=== PATIENT | male | born 1970 | race Caucasian/White ===

== ENCOUNTER 2024-05-17 09:17 | Outpatient (AMB) | payer OTHER, SELFPAY ==
--- NOTE | 2024-05-17 09:32 | A.OFFPC_ITS ---
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 Required: No Accompanied by: Self / Same As Patient Allergies No Known Allergies Allergy (Verified 05/17/24 09:43) Medication List - Last Reconciled 05/17/24 by Ephraim Wilson PA-C No Known Home Meds Tobacco use date assessed: 05/17/24 Dental Screening Dental Screen Date: 05/17/24 Did you have a dental visit in the last 12 months?: Yes Did you have a dental problem in the last 6 months where you did not have access to dental care?: No Was dental information given to patient?: Patient has dentist HPI establish care HPI Details The patient is a 53-year-old male presenting for a wellness visit and inquiries about health screenings. He reports a longstanding history of restless legs syndrome, which primarily affects his by disrupting her sleep and occasionally causes him to wake during the night. He has attempted maop-vav-pmaufgj remedies such as potassium supplementation, but he seeks further evaluation and potential treatment options. He is concerned about health maintenance given his age and mentions his 's encouragement to pursue screenings. The patient does not take any medications and reports no chronic illnesses. He previously saw Dr. Santos but has not had a medical review for some time. He has never received the tetanus vaccine nor undergone a colonoscopy or other colorectal cancer screenings. He is aware that the recommended starting age for colorectal screening has been reduced to 45 years. His family history reveals a father with heart issues characterized by hypertension and atrial fibrillation. His father also had a minor stroke affecting vision in one eye. The patient's mother is in good health, and his siblings are also well. Vaccine: Need For Tdap though declines at this time, declines flu vaccine Colorectal cancer screening: Willing to do Cologuard COUNTS INCLUDE [facility] BEDS AT THE [facility] Surgical History History of right knee surgery History of shoulder surgery Family History (Updated 05/17/24 @ 09:48 by Ephraim Wilson PA-C) Mother No problems noted. Father CVA (cerebral vascular accident) HTN (hypertension) Social History Housing: House Alcohol intake: current Alcohol intake frequency: a few times a week Alcohol type: wine Patient Tobacco Use Status: Never used Tobacco e-Cigarette/Vaping Use: Never Used Second Hand Smoke Exposure: No service: No Current occupational status: employed Current occupational exposures/hazards: No Cognitive needs: No Hearing needs: No Vision needs: No Questionnaire PHQ-9 Over the last 2 weeks, how often have you been bothered by any of the following problems? 1. Little interest or pleasure in doing things: not at all 2. Feeling down, depressed, or hopeless: not at all 3. Trouble falling or staying asleep, or sleeping too much: not at all 4. Feeling tired or having little energy: not at all 5. Poor appetite or overeating: not at all 6. Feeling bad about yourself - or that you are a failure or have let yourself or your family down: not at all 7. Trouble concentrating on things, such as reading the newspaper or watching television: not at all 8. Moving or speaking so slowly that other people could have noticed. Or the opposite - being so fidgety or restless that you have been moving around a lot more than usual: not at all 9. Thoughts that you would be better off or of hurting yourself in some way: not at all Total score: 0 Depression Screening Interpretation: Negative Depression Screening Done: Yes 91831 - PHQ-9 Billing: Yes Source: Developed by Drs. Stuart Dutta, Elysia Patel, Imer Barajas and colleagues, with an educational janett from [employer]. Thrive Questionnaire Date Thrive assessed: 05/11/24 I am a: Patient What is your living situation today?: I have a steady place to live Within the past 12 months, did the food you bought not last and you didn't have the money to get more?: Never true Within the past 12 months, did you worry whether your food would run out before you got money to buy more?: Never true Do you have trouble paying for medicines?: No Do you have trouble getting transportation to medical appointments?: No Do you have trouble paying your heating and electricity bill?: No Do you have trouble taking care of your child, family member or friend?: No Do you have trouble with day-to-day activities such as bathing, preparing meals, shopping, managing finances, etc.?: No Are you currently unemployed and looking for a job?: No Are you interested in more education?: No Please select the resources that you would like help with: None Currently or been in a relationship where the following occur: No concerns reported THRIVE Score: 0 AUDIT C Alcohol Use Questionnaire (AUDIT-C) 1. How often do you have a drink containing alcohol?: 2-4 times a month 2. How many drinks containing alcohol do you have on a typical day when you are drinking?: 3 or 4 3. How often do you have six or more drinks on one occasion?: Never Total Score: 3 DOUGLAS-7 AMB Questionnaire DOUGLAS-7 Date DOUGLAS - 7 assessed: 05/17/24 Feeling nervous, anxious, or on edge: 0 = Not at all Not being able to stop or control worryin = Not at all Worrying too much about different things: 0 = Not at all Trouble relaxin = Not at all Being so restless that it is hard to sit still: 0 = Not at all Becoming easily annoyed or irritable: 0 = Not at all Feeling afraid as if something awful might happen: 0 = Not at all Total DOUGLAS-7 score (0-4 normal; 5-9 mild; 10-14 moderate; 15-21 severe): 0 Source: Developed by Drs. Stuart Dutta, Elysia Patel, Imer Barajas and colleagues, with an educational janett from [employer]. DOUGLAS-7 Assessment Billing DOUGLAS-7 Assessment Tool: DOUGLAS-7 Assessment 45609 Review of Systems Const Denies headache(s) Eyes Denies loss of vision ENT Denies vertigo, Denies dizziness, Denies headache(s) and Denies sore throat Card Denies chest pain, Denies leg edema and Denies lightheadedness Resp Denies cough, Denies hemoptysis and Denies wheezing GI Denies abdominal pain, Denies melena, Denies constipation, Denies diarrhea and Denies vomiting Denies dysuria, Denies urinary frequency and Denies urinary urgency Musc Denies arthralgias, Denies joint swelling, Denies numbness and Denies tingling Neuro Denies Abnormal speech present, Denies behavioral changes, Denies vertigo, Denies dizziness, Denies headache(s), Denies loss of vision, Denies memory loss, Denies numbness and Denies tingling Psych Denies anxiety, Denies behavioral changes, Denies depression, Denies memory loss and Denies panic attacks Viraj/Lymph Denies easy bleeding and Denies easy bruising Aller/Immun Denies wheezing Physical exam (Primary Care) Vital Signs: Last Vital Signs Pulse 89 05/17/24 09:35 BP 146/84 H 05/17/24 09:35 Pulse Ox 97 05/17/24 09:35 Oxygen Delivery Method Room Air 05/17/24 09:35 BMI result Body Mass Index 28.5 Tobacco/Smoking Status: Tobacco use Status Patient Tobacco Use Status Never used Tobacco 05/17/24 09:38 e-Cigarette/Vaping Use Never Used 05/17/24 09:38 PHQ-9: PHQ-9 Score PHQ-9: Total score 0 05/17/24 09:34 Depression Screening Interpretation: Negative Thrive Assessment: Date of Thrive Assessment Date Thrive assessed 05/11/24 05/17/24 09:34 Currently or been in a relationship where the following occur: No concerns reported Const General: healthy appearing, no acute distress, alert and awake Nutritional Appearance: well nourished Orientation/consciousness: oriented to person, oriented to place and oriented to time HENMT Ears: TM's normal bilaterally General nose exam: Normal nasal mucous membranes and turbinates present Eyes Conjunctivae: conjunctivae normal Sclerae: sclerae normal Pupils: Equal, round and reactive pupils present Neck Neck: Yes no lymphadenopathy and Yes no JVD Thyroid: Thyroid normal Carotids: no bruits Resp Effort & Inspection: normal respiratory effort and not tachypneic Auscultation: no crackles, no rales, no rhonchi and no wheezes Cardio Rate: regular rate Rhythm: regular rhythm Heart sounds: no murmurs and normal S1 and S2 GI Palpation (GI): Soft to palpation, nontender, no hepatomegaly and no splenomegaly Auscultation: normal bowel sounds Skin General skin exam: no rashes or lesions noted and dry skin Neuro General: oriented to person, oriented to place and oriented to time Cranial nerves: Yes Equal, round and reactive pupils present Speech: No Abnormal speech present Gait exam (Neuro): Normal gait present Motor exam (neuro): no tremor noted Extrem Right upper extremity: full ROM Left upper extremity: full ROM Right lower extremity: full ROM; no edema Left lower extremity: full ROM; no edema Psych Mental Status: mental status grossly normal Speech and movement: Normal speech and movement present Affect: normal affect Attitude: cooperative Thought process: Normal thought process present Coding Level of Care Code New Pt Level 4 (02424) Diagnoses RLS (restless legs syndrome) G2.81 Screening for diabetes mellitus (DM) Z13.1 Encounter for screening prostate specific antigen (PSA) measurement Z12.5 Elevated blood pressure reading in office with white coat syndrome, without diagnosis of hypertension R03.0 Additional Codes PHQ-9 - 36929 - PHQ-9 Billing: Yes ([id number]) DOUGLAS-7 Assessment Billing - DOUGLAS-7 Assessment Tool: DOUGLAS-7 Assessment 41865 ([id number]) Assessment & Plan Assessment & Plan (1) RLS (restless legs syndrome): Code(s): G2.81 - Restless legs syndrome Category: Medical Plan: Patient reports he has been having restless legs at night quite some time which disrupts his sleep in his sleep. He has tried supplemental potassium though has not been effective. He is willing to try ropinirole 0.1 mg. (2) Screening for diabetes mellitus (DM): Code(s): Z13.1 - Encounter for screening for diabetes mellitus Category: Medical Plan: As per HPI (3) Encounter for screening prostate specific antigen (PSA) measurement: Code(s): Z12.5 - Encounter for screening for malignant neoplasm of prostate Category: Medical Plan: As per HPI (4) Elevated blood pressure reading in office with white coat syndrome, without diagnosis of hypertension: Code(s): R03.0 - Elevated blood-pressure reading, without diagnosis of hypertension Category: Medical Plan: Noted elevated blood pressure reading today in office. 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 He will monitor his blood pressure at home Orders: Orders Magnesium Today G2.81 - Restless legs syndrome Comprehensive [place]. Panel Fast Today Z13.1 - Encounter for screening for diabetes mellitus Ferritin Today G2.81 - Restless legs syndrome Prostate Specific Antigen Scr Today Z12.5 - Encounter for screening for malignant neoplasm of prostate Complete Blood Count no Diff Today Z13.1 - Encounter for screening for diabetes mellitus Referrals Gastroenterology Referral Z12.11 - Encounter for screening for malignant neoplasm of colon, Z12.12 - Encounter for screening for malignant neoplasm of rectum Medications: New ropinirole administer 1-3 hours before bedtime 0.5 mg PO BEDTIME 7 days 7 tabs 0RF G25.81 - Restless legs syndrome
[2024-05-17 09:35] VITALS: BP 146/84; PULSE 89; O2SAT 97; BMI 28.5
--- OUTSIDE RECORDS SUMMARY | 2024-05-17 09:37 | XMS_ITS | Clinical Summary ---
Author Organization [facility] [employer] [facility] Address [address] [place] [address] Care Team Providers Care Pharmaceutical Plant Operator Name Role Phone No, Pcp RECRUITMENT MANAGER Primary Care Provider Unavailabl e Allergies No known active allergies Medications No known medications Social History Tobacco Use Types Packs/Day Years Used Date Smoking Tobacco: Never Assessed Sex and Gender Information Value Date Recorded Sex Assigned at Not on file Legal Sex Male 1:11 PM EST Gender Identity Not on file Sexual Orientation Not on file Last Filed Vital Signs Vital Sign Reading Time Taken Comments Blood Pressure 136/80 04/27/2020 2:12 PM EST Pulse 80 04/27/2020 2:12 PM EST Temperature 36.7 ??C (98.1 ??F) 04/27/2020 2:12 PM ES T Respiratory Rate 18 04/27/2020 2:12 PM EST Oxygen Saturation 98% 04/27/2020 2:12 PM EST Inhaled Oxygen Concentration - - Weight - - Height - - Body Mass Index - - Plan of Treatment Health Maintenance Due Date Last Done Comments Colorectal Cancer: COLONOSCO PY Screening every 10 yrs (or Modifier) 1971 Depression: Screening Annual ly using PHQ-2/9 in Adults 18 yrs or above (or HM Modifier)([facility]) 11/21/1989 Hepatitis C Virus Infection in Adolescents and Adults: Screening (or Modifier) ([facility]) 11/21/1989 [facility] Screening Reminder: Maria E braun for all adults ([facility]) 11/21/1989 Tobacco Smoking Cessation: i n Adults excluding Women: Behavioral and Pharmacotherapy Interventions ([facility]) 11/21/1989 DTaP/Tdap/Td Vaccines ([facility]) (1 - Tdap) 11/21/1990 Lipid Screening: Every 5 yrs for Men aged 35+ (or HM Modifier) ([facility]) 2007 Colorectal Cancer Screening 45 -75 Yrs (or HM Modifier) 11/21/2016 Colorectal Cancer: FLEXIBLE SIGMOIDOSCOPY Screening every 5 yrs 11/21/2016 Colorectal Cancer: Fecal Immunochemical Test (FIT) Annually [facility] 11/21/2016 Colorectal Cancer: High-sens itivity gFOBT Screening Annually [facility] 11/21/2016 Colorectal Cancer: Stool Col oguard Screening every 3 yrs 11/21/2016 Colorectal Cancer:CT Colonog isaias Screening every 5 yrs 11/21/2016 Zoster/Shingles Vaccine Seri es Screening: Adults aged 18+ yrs (or HM Modifiers)([facility]) (1 of 2) 11/21/2021 Flu Vaccination: Yearly for ages 18mos through 64 years (or Modifier)([facility]) 11/13/2023 COVID-19 Vaccine Screening: Initial Series and Booster Status ([facility]) (2023- season) 2023 Pneumococcal Vaccination Scr eening: Pts 0-19 & 19-64 yrs of age ([facility]) Aged Out No longer eligible based on patient's age to complete this topic Medical Devices Not on file Insurance [facility] Care Teams Pharmaceutical Plant Operator Relationship Specialty Start Date End Date No, Pcp, RECRUITMENT MANAGER N/A Do not use PCP - General Family Medicine 04/27/20
== END 2024-05-17 10:05 | disposition home or self-care (01) ==
PROVIDERS: PCP Physician Assistant; Visit Provider Physician Assistant
DX: G25.81 Restless legs syndrome (principal); Z13.1 Encounter for screening for diabetes mellitus; Z12.5 Encounter for screening for malignant neoplasm of prostate; R03.0 Elevated blood-pressure reading, without diagnosis of hypertension

== ENCOUNTER → 2024-05-17 09:17 | Outpatient (BNVA) | payer OTHER, SELFPAY | PROVIDERS: PCP Physician Assistant; Visit Provider Physician Assistant | DX: G25.81 Restless legs syndrome (principal); R03.0 Elevated blood-pressure reading, without diagnosis of hypertension | CPT/HCPCS: 96127 ==

== ENCOUNTER 2024-11-25 08:38 | Outpatient (AMB) | payer OTHER, SELFPAY ==
--- NOTE | 2024-11-25 08:47 | A.OFFVIS_ITS ---
Vital Signs 11/25/24 08:53 Height 5 ft 9 in Weight 180 lb BMI 26.6 BP 134/82 Blood Pressure Location Rt brachial Position Sitting Pulse 76 Pulse Source Pulse Oximeter Pulse Oximetry (%) 99 Oxygen Delivery Method Room Air Intake Visit Reasons: pre colonoscopy Intake Note: Patient new consult for Colonoscopy Screening. Patient cc: Pt denies any GI sx or concerns at this time. Pt reports FMHx (MGM). 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 Referred by PCP for pre colonoscopy screening This will be Teofilo first colonoscopy. He reports having bowel movements once daily without issues; denies constipation, diarrhea, or blood in stool. He has experienced intentional weight loss of approximately 13 pounds since May 2024 due to healthier eating and increased exercise. He denies experiencing heartburn or other gastrointestinal complaints. Recent knee surgery five weeks ago was noted. Teofilo takes ropinirole nightly for restless legs syndrome, which is stable, and naproxen on an as-needed basis. Patient denies: fever/chills, n/v, appetite changes, pyrosis, regurgitation,dysphasia, unintentional wt loss, ab pain or melena/hematochezia. Social hx: -Weekends, occasionally a couple of glasses of wine or beer. -denies recreational drug use -Quit over 30 years ago; history of occasional smoking during college. - family hx as below -denies personal hx of CA -denies significant cardiopulmonary history -tolerated anesthesia in the past without difficulty. [facility] Medical History (Updated 11/25/24 @ 09:03 by Ju Garcia CNP) Colon cancer screening Surgical History History of right knee surgery History of shoulder surgery Family History (Updated 11/25/24 @ 08:52 by BRICE Shelton) Mother No problems noted. Father CVA (cerebral vascular accident) HTN (hypertension) Maternal Grandmother Colon cancer Social History (Reviewed 11/25/24 @ 08:48 by ALFRED Shelton Housing: House Alcohol intake: current Alcohol intake frequency: a few times a week Alcohol type: wine Patient Tobacco Use Status: Never used Tobacco e-Cigarette/Vaping Use: Never Used Second Hand Smoke Exposure: No service: No Current occupational status: employed Current occupational exposures/hazards: No Cognitive needs: No Hearing needs: No Vision needs: No Review of Systems Const Reports as per HPI ENT Reports as per HPI Card Reports as per HPI Resp Reports as per HPI GI Reports as per HPI Reports as per HPI Physical Exam Vital Signs: Last Vital Signs Pulse 76 11/25/24 08:53 BP 134/82 11/25/24 08:53 Pulse Ox 99 11/25/24 08:53 Oxygen Delivery Method Room Air 11/25/24 08:53 BMI result Body Mass Index 26.6 Const General: healthy appearing, no acute distress and well developed Nutritional Appearance: average body habitus Orientation/consciousness: patient oriented x3 HEENT Head: Yes normal to inspection, Yes normocephalic and Yes atraumatic Face and sinus: Yes normal facial exam Eyes General: appearance normal, both eyes and all related structures Neck Neck: Yes normal visual inspection Resp Effort & Inspection: normal respiratory effort, able to speak in complete sentences, no tracheal deviation and symmetric chest movement Cardio Jugular venous distension: no JVD Neuro General: patient oriented x3 Gait exam (Neuro): Normal gait present Psych Appearance: grossly normal Mental Status: mental status grossly normal Speech and movement: Normal speech and movement present Affect: normal affect Attitude: cooperative Thought process: Normal thought process present Thought content: Normal thought content present Insight: Good insight present (Psych) Judgement: Good judgement present (Psych) Assessment & Plan Assessment & Plan (1) Colon cancer screening: Code(s): Z12.11 - Encounter for screening for malignant neoplasm of colon Category: Medical Plan: Index screening colonoscopy, without alarm features. Second degree relative with colon cancer history (maternal grandmother). Medications: -prescriptions for laxative tablets and MiraLax sent to pharmacy; instructions for Gatorade purchase and clear liquid diet given. Patient educated on scheduling process, procedure preparation, including avoiding certain foods and ensuring clear liquid intake Advised on necessity for ride post-procedure due to sedation. Plan Follow-up after colonoscopy as warranted or sooner if needed Time: I spent a total of 15 minutes on the date of encounter which includes: Preparing to see the patient (reviewed previous documentation, test results and medical history) Performing a medically appropriate exam and/or evaluation Ordering medications, tests, and procedures Documenting clinical information in the health record Medications: New bisacodyl (Dulcolax (bisacodyl)) Take four tablets pre colonoscopy instructions 20 mg (4 x 5 mg) PO ONCE 4 tabs 0RF 1 day polyethylene glycol 3350 (Miralax) per colonoscopy prep instructions 238 grams PO ONCE 238 grams 0RF Coding Level of Care Code New Pt New Pt Level 2 (09347) Patient Type New Diagnoses Colon cancer screening Z12.11
[2024-11-25 08:53] VITALS: BP 134/82; PULSE 76; O2SAT 99; BMI 26.6
--- OUTSIDE RECORDS SUMMARY | 2024-11-25 08:59 | XMS_ITS | Clinical Summary ---
Author Organization [facility] Address [address] [place] [address] Care Team Providers Care Receiver Setter Name Role Phone No, Pcp LABOR TRAINING MANAGER Primary Care Provider Unavailabl e Allergies [...] 80 04/27/2020 2:12 PM EST Temperature 36.7 C (98.1 F) 04/27/2020 2:12 PM EST Respiratory Rate 18 04/27/2020 2:12 PM EST [...] Adults 18 yrs or above (or HM Modifier)([facility]) 11/21/1989 Hepatitis C Virus Infection in Adolescents and Adults: Screening (or Modifier) ([facility]) 11/21/1989 [facility] Screening Reminder: Maria E braun for all adults ([facility]) 11/21/1989 Tobacco Smoking Cessation: i n Adults excluding Women: Behavioral and Pharmacotherapy Interventions ([facility]) 11/21/1989 DTaP/Tdap/Td Vaccines ([facility]) (1 - Tdap) 11/21/1990 Colorectal Cancer Screening 45 -75 Yrs (or HM Modifier ) 11/21/2016 Colorectal Cancer: FLEXIBLE SIGMOIDOSCOPY Screening every 5 yrs 11/21/2016 Colorectal Cancer: Fecal Imm unochemical Test (FIT) Annually [facility] 11/21/2016 Colorectal Cancer: High-sens itivity gFOBT Screening Annually [facility] 11/21/2016 Colorectal Cancer: Stool Col oguard Screening every 3 yrs 11/21/2016 Colorectal Cancer:CT Colonography Screening every 5 yr s 11/21/2016 Pneumococcal Vaccination Scr eening: Patients 50+ yrs of age ([facility]) (1 of 1 - PCV) 11/21/2021 Zoster/Shingles Vaccine Seri es Screening: Adults aged 18+ yrs (or HM Modifiers)([facility]) (1 of 2) 11/21/2021 COVID-19 Vaccine Screening: Initial Series and Booster Status ([facility]) (2023- season) 2023 Flu Vaccination: Yearly for ages 18mos through 64 years (or Modifier)([facility]) 11/12/2024 Medical Devices Not on file Insurance [facility] Care Teams Receiver Setter Relationship Specialty Start Date End Date No, Pcp, LABOR TRAINING MANAGER N/A Do not use PCP - General Family Medicine 04/27/20
== END 2024-11-25 09:11 | disposition home or self-care (01) ==
LOC: HO.HGI 08:46
PROVIDERS: PCP Physician Assistant; Visit Provider Nurse Practitioner Family
DX: Z01.818 Encounter for other preprocedural examination (principal); Z12.11 Encounter for screening for malignant neoplasm of colon
CPT/HCPCS: 99202

== ENCOUNTER 2025-03-14 07:52 | Outpatient (REF) | payer OTHER, SELFPAY ==
--- OUTSIDE RECORDS SUMMARY | 2025-03-14 07:54 | XMS_ITS | Clinical Summary ---
Author Organization [employer] [facility] lin Address [address] [place] [address] Care Team Providers Care Financial Risk Manager Name Role Phone No, Pcp SURVEY RESEARCH ANALYST Primary Care Provider Unavailabl e Allergies No [...] Mass Index - - Plan of Treatment Not on file Medical Devices Not on file Insurance [facility] Care Teams Financial Risk Manager Relationship Specialty Start Date End Date No, Pcp, SURVEY RESEARCH ANALYST N/A Do not use PCP - General Family Medicine 04/27/20
[2025-03-14 08:42] LABS: Hematocrit 42.9 % (42.0-52.0); Hemoglobin 14.2 g/dl (14.0-18.0); Mean Corpuscular HGB Conc 33.1 g/dl (31.0-36.0); Mean Corpuscular Hemoglobin 30.9 pg (27.0-33.0); Mean Corpuscular Volume 93.5 fL (80.0-98.0); NRBC Abs Auto 0.000 X10*3/uL (0.0-0.012); NRBC Pct Auto 0.0 /100WBC (0.0-0.2); Platelet Count 306 X10*3/uL (160-400); Red Blood Count 4.59 X10*6/uL (4.60-5.80); White Blood Count 4.8 X10*3/uL (4.8-10.8)
[2025-03-14 09:24] LABS: Alanine Aminotransferase 40 U/L (0-40); Albumin Level 4.9 g/dL (3.5-5.0); Alkaline Phosphatase 42 U/L (39-117); Anion Gap 13 (12-20); Aspartate Amino Transferase 27 U/L (5-37); Blood Urea Nitrogen 17 mg/dL (9-16); Calcium 9.4 mg/dL (8.4-10.2); Carbon Dioxide 26 mmol/L (22-29); Chloride 108 mmol/L (96-108); Estimated Glomerular Filt Rate > 60; Magnesium 2.1 mg/dL (1.6-2.6); Potassium 4.3 mmol/L (3.3-5.1); Sodium 143 mmol/L (135-145); Total Protein 7.3 g/dL (6.5-8.0)
[2025-03-14 09:33] LABS: Ferritin 293 ng/mL (20-250)
== END 2025-03-14 07:53 | disposition home or self-care (01) ==
LOC: HO.LAB 07:52
PROVIDERS: PCP Physician Assistant; Visit Provider Physician Assistant
DX: Z13.1 Encounter for screening for diabetes mellitus (principal); Z12.5 Encounter for screening for malignant neoplasm of prostate; G25.81 Restless legs syndrome
CPT/HCPCS: 36415; 80053; 82728; 83735; 84153; 85027

== ENCOUNTER 2025-03-15 10:32 | Outpatient (AMB) | payer OTHER, SELFPAY ==
--- NOTE | 2025-03-15 10:48 | A.OFFPC_ITS ---
Vital Signs 03/15/25 10:50 Height 5 ft 9 in Weight 187 lb 6 oz BMI 27.7 BP 120/66 Blood Pressure Location Lt brachial Position Sitting Pulse 98 Pulse Source Pulse Oximeter Temp 97.3 F Temp Source Temporal Artery Scan Pulse Oximetry (%) 96 Oxygen Delivery Method Room Air Intake Visit Reasons: annual exam Intake Note: Patient is here today for a physical. 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 Patient has a past medical history significant for restless legs syndrome. The patient reports a significant issue with restless legs, which disrupts sleep. The patient has been taking ropinirole, which was initially effective, but the patient feels a tolerance may have developed. The patient has experimented with taking 1.5 pills, which improves sleep but results in grogginess the following day, and also runs out of the medication before the prescription is due for a refill. The patient has tried magnesium supplements without noticeable improvement. The sleep disruption affects the patient's mood and energy levels, causing tiredness during the day. There is a strong family history of restless legs syndrome, with both parents and the patient's 27-year-old daughter also affected. Recent lab work revealed a slightly elevated ferritin level of 293 and a fasting blood sugar of 112, for which the patient confirms having fasted. The patient's father is currently undergoing testing for digestive issues. Colonoscopy: Has gotten colonoscopy evaluation in his awaiting the procedure. VAccine: Declines flu vaccine , up-to-date with COVID vaccine, considering tetanus vaccines Laboratory Tests 03/14/25 08:04 Fasting Glucose 112 H Ferritin 293 H PSA Screen 0.83 PFSH Medical History (Updated 03/15/25 @ 12:47 by Ephraim Wilson PA-C) Colon cancer screening Surgical History History of right knee surgery History of shoulder surgery Family History Mother No problems noted. Father CVA (cerebral vascular accident) HTN (hypertension) Maternal Grandmother Colon cancer Social History (Updated 03/15/25 @ 11:31 by Ephraim Wilson PA-C) Housing: House Alcohol intake: current Alcohol intake frequency: a few times a week Alcohol type: wine Patient Tobacco Use Status: Never used Tobacco e-Cigarette/Vaping Use: Never Used Second Hand Smoke Exposure: No service: No Current occupational status: employed Current occupational exposures/hazards: No Cognitive needs: No Hearing needs: No Vision needs: No Questionnaire Thrive Questionnaire Date Thrive assessed: 05/11/24 I am a: Patient What is your living situation today?: I have a steady place to live Within the past 12 months, did the food you bought not last and you didn't have the money to get more?: Never true Within the past 12 months, did you worry whether your food would run out before you got money to buy more?: Never true Do you have trouble paying for medicines?: No Do you have trouble getting transportation to medical appointments?: No Do you have trouble paying your heating and electricity bill?: No Do you have trouble taking care of your child, family member or friend?: No Do you have trouble with day-to-day activities such as bathing, preparing meals, shopping, managing finances, etc.?: No Are you currently unemployed and looking for a job?: No Are you interested in more education?: No Please select the resources that you would like help with: None Currently or been in a relationship where the following occur: No concerns reported THRIVE Score: 0 DOUGLAS-7 AMB Questionnaire DOUGLAS-7 Date DOUGLAS - 7 assessed: 05/17/24 Source: Developed by Drs. Stuart Dutta, Elysia Patel, Imer Barajas and colleagues, with an educational janett from [employer]. Review of Systems Const Denies body aches, Denies chills, Denies excessive sweating, Denies fatigue, Denies fever(s) and Denies headache(s) Eyes Denies blurry vision ENT Denies dysphagia, Denies vertigo, Denies dizziness, Denies headache(s), Denies hearing loss and Denies tinnitus Card Denies chest pain, Denies chest pain with activity, Denies syncope, Denies irregular heart rhythm and Denies dyspnea Resp Denies chest congestion, Denies cough, Denies hemoptysis, Denies dyspnea and Denies wheezing GI Denies abdominal pain, Denies melena, Denies hematochezia, Denies coffee ground emesis, Denies dysphagia, Denies diarrhea, Denies nausea and Denies vomiting Denies difficulty urinating, Denies dysuria, Denies urinary frequency, Denies urinary hesitancy and Denies urinary urgency Musc Denies arthralgias, Denies limited range of motion, Denies muscle cramps and Denies muscle weakness Skin/Breast Denies rash and Denies skin ulcer Neuro Denies Abnormal speech present, Denies confusion, Denies vertigo, Denies dizziness, Denies syncope, Denies headache(s), Denies memory loss and Denies seizure-like activity Psych Denies anxiety, Denies confusion, Denies depression, Denies memory loss, Denies panic attacks and Denies paranoia Endo Denies excessive sweating, Denies fatigue, Denies flushing, Denies polydipsia and Denies polyuria Aller/Immun Denies wheezing Physical exam (Primary Care) Vital Signs: Last Vital Signs Temp 97.3 F 03/15/25 10:50 Pulse 98 03/15/25 10:50 BP 120/66 03/15/25 10:50 Pulse Ox 96 03/15/25 10:50 Oxygen Delivery Method Room Air 03/15/25 10:50 BMI result Body Mass Index 27.7 Tobacco/Smoking Status: Tobacco use Status Tobacco use date assessed 03/15/25 03/15/25 10:54 Patient Tobacco Use Status Never used Tobacco 03/15/25 11:31 e-Cigarette/Vaping Use Never Used 03/15/25 11:31 Thrive Assessment: Date of Thrive Assessment Date Thrive assessed 05/11/24 03/15/25 10:54 Currently or been in a relationship where the following occur: No concerns reported Const General: cooperative, comfortable, no acute distress, alert and awake; No confusion Orientation/consciousness: oriented to person, oriented to place, patient oriented x3 and No confusion HENMT Head: Yes normocephalic Ears: external ears normal and TM's normal bilaterally Face and sinus: No sinus tenderness Mouth: Normal oral and palatal mucosa present and tongue normal Teeth and gingiva: dentition normal and gingiva normal Throat: Yes posterior oropharynx normal, Yes tonsils normal and Yes uvula midline Eyes Conjunctivae: conjunctivae normal Sclerae: sclerae normal Pupils: Equal, round and reactive pupils present EOM: EOMs intact bilaterally Direct Ophthalmoscopy: No no photophobia Neck Neck: Yes no lymphadenopathy, No tender and Yes no JVD Thyroid: Thyroid normal Carotids: no bruits Chest Chest palpation & inspection: no tenderness Resp Effort & Inspection: normal respiratory effort, no audible wheezes, not labored and no stridor Auscultation: no crackles, no rales, no rhonchi and no wheezes Cardio Jugular venous distension: no JVD Rate: regular rate, not bradycardic and not tachycardic Rhythm: regular rhythm Bruits: no carotid bruits Peripheral pulses: Peripheral pulses 2+ throughout GI Inspection: Yes normal to inspection, No abdominal wall ecchymosis and No visible herniation Palpation (GI): Soft to palpation, nontender, no guarding, not rigid and No hepatosplenomegaly present Auscultation: normoactive bowel sounds General: Yes no CVA tenderness Back/Spine/Pelvis Back: no CVA tenderness and No back tenderness Cervical Spine: cervical ROM normal Thoracic/Lumbar Spine: thoracic and lumbar spine normal to inspection, straight leg raise negative bilaterally, No thoraco-lumbar ROM limited and No lumbar spinal tenderness Skin Lesions: no lesions Rashes: no rashes Wounds: no wounds Neuro General: oriented to person, oriented to place, patient oriented x3, CN's II-XI intact bilaterally and No confusion Cranial nerves: Yes Equal, round and reactive pupils present and Yes Normal accommodation reflex present Cognition (Neuro): normal cognition Speech: No Abnormal speech present Gait exam (Neuro): Normal gait present Motor exam (neuro): 5/5 motor strength present throughout Extrem Right upper extremity: full ROM; no cyanosis Left upper extremity: full ROM; no cyanosis Right lower extremity: no edema Left lower extremity: no edema Psych Appearance: grossly normal Mental Status: mental status grossly normal Affect: normal affect Attitude: cooperative Thought process: Normal thought process present Coding Level of Care Code Est Pt Prev Care 40-64y(45324) Diagnoses Annual physical exam Z00.00 Elevated fasting blood sugar R73.01 Elevated ferritin R79.89 RLS (restless legs syndrome) G2.81 Assessment & Plan Assessment & Plan (1) Annual physical exam: Code(s): Z00.00 - Encounter for general adult medical examination without abnormal findings Category: Medical Plan: As per HPI (2) Elevated fasting blood sugar: Code(s): R73.01 - Impaired fasting glucose Category: Medical Plan: The patient was counseled on dietary modifications, specifically reducing the intake of carbohydrates and sugary beverages like wine, to help manage blood sugar. To further evaluate the elevated fasting glucose and ferritin levels, follow-up lab work is planned in approximately eight weeks. This will include a fasting blood sugar, HbA1c, iron studies, and a repeat ferritin level, requiring an 8-10 hour fast. A liver ultrasound will be considered if ferritin levels remain elevated. (3) Elevated ferritin: Code(s): R79.89 - Other specified abnormal findings of blood chemistry Category: Medical Plan: As above RBCs slightly low, though MCV normal Check iron studies (4) RLS (restless legs syndrome): Code(s): G25.81 - Restless legs syndrome Category: Medical Plan: For the management of restless legs syndrome and associated insomnia, the dose of ropinirole will be increased to 1 mg taken at bedtime. The patient was advised to revert to the previous dose if the increased dosage causes significant next-day grogginess. Orders: Orders IRON PROFILE Today D50.9 - Iron deficiency anemia, unspecified, R79.89 - Other specified abnormal findings of blood chemistry Hemoglobin A1c Today R73.01 - Impaired fasting glucose Comprehensive Watkins. Panel Fast Today R73.01 - Impaired fasting glucose Ferritin Today R79.89 - Other specified abnormal findings of blood chemistry Complete Blood Count no Diff Today R789 - Other specified abnormal findings of blood chemistry Medications: New ropinirole 1 mg PO DAILY 30 tabs 3RF 30 days - Restless legs syndrome Discontinued ropinirole administer 1-3 hours before bedtime Discontinued Reason: Doctor's Order 0.5 mg PO BEDTIME 30 days 30 tabs 3RF - Restless legs syndrome
[2025-03-15 10:50] VITALS: BP 120/66; PULSE 98; TEMP 36.3; O2SAT 96; BMI 27.7
--- OUTSIDE RECORDS SUMMARY | 2025-03-15 12:11 | XMS_ITS | Clinical Summary ---
Author Organization [facility] lin Address [address] [place] [address] Care Team Providers Care Crossband Layer Name Role Phone No, Pcp [employer]PERVIS[employer] Primary Care Provider Unavailabl e Allergies No [...] Medical Devices Not on file Insurance [facility] Care Teams Crossband Layer Relationship Specialty Start Date End Date No, Pcp, SU[employer] N/A Do not use PCP - General Family Medicine 04/27/20
== END 2025-03-15 11:45 | disposition home or self-care (01) ==
LOC: HO.HMCH 10:33
PROVIDERS: PCP Physician Assistant; Visit Provider Physician Assistant
DX: Z00.00 Encounter for general adult medical examination without abnormal findings (principal); R73.01 Impaired fasting glucose; R79.89 Other specified abnormal findings of blood chemistry; G25.81 Restless legs syndrome